=== PATIENT | female | born 1990 | race Caucasian/White ===

== ENCOUNTER 2020-03-13 14:14 | Outpatient (CLI) | payer MEDICAID ==
[2020-03-13 14:50] LABS: BASOPHILS % (AUTO) 0.1 %; EOSINOPHILS % (AUTO) 0.6 %; HGB - HEMOGLOBIN 15.6 g/dL (12.0-16.0); LYMPHOCYTES # (AUTO) 1.7 10^3/uL (1.5-3.5); LYMPHOCYTES % (AUTO) 23.6 %; MEAN CORPUSCULAR HEMOGLOBIN 30.2 pg (27.0-31.0); MEAN CORPUSCULAR HGB CONC 34.3 g/dL (32.0-36.0); MEAN PLATELET VOLUME 10.4 fL (7.9-10.8); MONOCYTES # (AUTO) 0.4 10^3/uL (0.0-1.0); MONOCYTES % (AUTO) 5.3 %; NEUTROPHILS # (AUTO) 4.9 10^3/uL (1.5-6.6); PLT - PLATELET COUNT 267 10^3/uL (130-450); RED BLOOD COUNT 5.17 10^6/uL (4.20-5.40); RED CELL DISTRIBUTION WIDTH 12.1 % (12.0-15.0)
[2020-03-13 14:52] LABS: BILIRUBIN,URINE NEGATIVE (NEGATIVE); GLUCOSE, URINE (UA) NEGATIVE (NEGATIVE); KETONES,URINE (UA) NEGATIVE (NEGATIVE); LEUKOCYTE ESTERASE, URINE NEGATIVE (NEGATIVE); NITRITE,URINE NEGATIVE (NEGATIVE); OCCULT BLOOD,URINE NEGATIVE (NEGATIVE); PROTEIN,URINE NEGATIVE (NEGATIVE); UROBILINOGEN,URINE 0.2 (NORMAL) E.U./dL (NORMAL)
[2020-03-13 14:54] LABS: CLARITY,URINE CLEAR (CLEAR)
[2020-03-13 15:19] LABS: ALBUMIN 4.8 g/dL (3.2-5.5); ALBUMIN/GLOBULIN RATIO 1.3 (1.0-2.2); ALKALINE PHOSPHATASE 90 IU/L (42-121); ALT ALANINE AMINOTRANSFERASE 18 IU/L (10-60); AST ASPARTATE AMINOTRANSFERASE 18 IU/L (10-42); BILIRUBIN,TOTAL 0.5 mg/dL (0.2-1.0); BUN - BLOOD UREA NITROGEN 15 mg/dL (6-20); CALCIUM 9.4 mg/dL (8.5-10.3); CARBON DIOXIDE - CO2 25 mmol/L (21-32); CHLORIDE 101 mmol/L (101-111); CREATININE 0.7 mg/dL (0.4-1.0); GLUCOSE 101 mg/dL (70-100); SODIUM 137 mmol/L (135-145); TOTAL PROTEIN 8.4 g/dL (6.7-8.2)
[2020-03-13 15:30] LABS: CRP - C-REACTIVE PROTEIN < 1.0 mg/dL (0-1.0)
[2020-03-13 16:43] LABS: RHEUMATOID FACTOR NEGATIVE (Negative)
[2020-03-17 11:56] LABS: ANA SCREEN NEGATIVE (NEGATIVE)
== END 2020-03-13 14:15 | disposition home or self-care (01) ==
LOC: LAB 14:14
PROVIDERS: ATTEND Internal Medicine
DX: M25.50 Pain in unspecified joint (principal); M79.10 Myalgia, unspecified site; R53.83 Other fatigue; H57.10 Ocular pain, unspecified eye; H92.09 Otalgia, unspecified ear; R51 Headache; R50.9 Fever, unspecified
CPT/HCPCS: 36415; 80053; 81001; 81003; 84443; 85025; 85651; 86038; 86140; 86200; 86308; 86430; 87040; 87086

== ENCOUNTER 2020-04-11 13:01 | Outpatient (CLI) | payer MEDICAID ==
--- NOTE | 2020-04-11 15:36 | CT Report ---
PROCEDURE: Sinuses INDICATIONS: SINUS PAIN, FEVER TECHNIQUE: Noncontrast 3.0 mm axial images acquired from the frontal sinuses to the mid-sella, with coronal and sagittal reformats. For radiation dose reduction, the following was used: automated exposure control , adjustment of mA and/or kV according to patient size. COMPARISON: None. FINDINGS: Image quality: Excellent. Maxillary Sinuses: No bony remodeling or destruction. Sinuses are clear. Ethmoid Air Cells: No bony remodeling or destruction. Sinuses are clear. Sphenoid Sinuses: No bony remodeling or destruction. Sinuses are clear. Frontal Sinuses: No bony remodeling or destruction. Sinuses are clear. Ostiomeatal Complexes: Ostiomeatal complexes are patent. No Stalin cells. Miscellaneous: Visualized intra-orbital contents are normal. No maximino bullosa. No nasal septal de viation. Unerupted tooth behind the right-sided maxillary incisors. IMPRESSION: No significant paranasal sinus disease. Unerupted tooth behind the right-sided maxillary incisors. Reviewed by: Ricky Britton on 04/11/2020 2:35 PM SUNG Approved by: Ricky Britton on 04/11/2020 2:35 PM SUNG Station ID: [id number]
== END 2020-04-11 13:02 | disposition home or self-care (01) ==
LOC: DI 13:01
PROVIDERS: ATTEND Internal Medicine
DX: J34.89 Other specified disorders of nose and nasal sinuses (principal); R50.9 Fever, unspecified; K00.6 Disturbances in tooth eruption
CPT/HCPCS: 70486

== ENCOUNTER 2020-04-29 13:50 | Outpatient (CLI) | payer MEDICAID ==
[2020-04-29] MEDS ORDERED: IOVERSOL 320 50 ML VIAL ONE (14:03)
[2020-04-29] MEDS ORDERED: IOVERSOL 320 100 ML VIAL IVP ONE ×2 (14:03→19:03)
--- NOTE | 2020-04-29 17:12 | CT Report ---
PROCEDURE: CHEST W INDICATIONS: FEVER CONTRAST: IV CONTRAST: Optiray 320 ml: 100 PO CONTRAST: *NO PO CONTRAST TECHNIQUE: After the administration of intravenous contrast, 5 mm thick sections acquired from the pulmonary api ovi to the posterior costophrenic angles. 7 mm thick coronal MIP reformats were acquired. For radia tion dose reduction, the following was used: automated exposure control, adjustment of mA and/or kV according to patient size. COMPARISON: Same day CT abdomen and pelvis. FINDINGS: Image quality: Excellent. Lungs and pleura: No acute air space opacities. No pleural effusions or pneumothorax. Central and peripheral airways are patent and normal in caliber. Mediastinum: Heart size is normal. No pericardial effusion. No mediastinal or hilar adenopathy by size criteria. Thoracic aorta and central pulmonary arteries are normal in size. Esophagus is caroline l in caliber. No hiatal hernia. Bones and chest wall: No suspicious bony lesions. No vertebral body compression fractures. No axil hellen or supraclavicular adenopathy by size criteria. Small bilateral subcentimeter thyroid nodules. Abdomen: Visualized upper abdominal solid organs appear normal. Upper abdominal bowel loops are nor mal in caliber. IMPRESSION: No acute airspace opacity. No pleural effusion. Subcentimeter thyroid nodules bilaterally. Reviewed by: Wesley Campoverde MD on 04/29/2020 5:11 PM PDT Approved by: Wesley Campoverde MD on 04/29/2020 5:11 PM PDT Station ID: [id number]
--- NOTE | 2020-04-29 17:18 | CT Report ---
PROCEDURE: Abdomen/Pelvis W INDICATIONS: FEVER CONTRAST: IV CONTRAST: Optiray 320 ml: 100 PO CONTRAST: Optiray 320 ml50 TECHNIQUE: After the administration of oral and intravenous contrast, 5 mm thick sections acquired from the diap hragms to the symphysis. 5 mm thick coronal and sagittal reformats were acquired. For radiation dos e reduction, the following was used: automated exposure control, adjustment of mA and/or kV accordin g to patient size. COMPARISON: Same day CT chest. FINDINGS: Image quality: Excellent. ABDOMEN: Lung bases: Lung bases are clear. Heart size is normal. Solid organs: Liver and spleen are normal in size and enhancement. Gallbladder is unremarkable. No pericholecystic fluid. Biliary system is non dilated. Pancreas enhances normally. No adrenal nodul es. Kidneys demonstrate normal size and enhancement, without hydronephrosis. Small simple cyst in th e inferior right kidney. No striated nephrogram. Peritoneum and bowel: Bowel loops demonstrate normal wall thickness and caliber. Prominent stool the colon. Normal appendix. No periappendiceal fluid. No free fluid or air. Nodes and vessels: No retroperitoneal or mesenteric adenopathy by size criteria. Aorta and inferior vena cava are normal in size. Miscellaneous: Tiny fat-containing periumbilical hernia. PELVIS: Genitourinary: Bladder wall thickness is normal. Anteverted uterus. No free fluid in the pelvis. Miscellaneous: No inguinal hernias or adenopathy. Bones: No suspicious bony lesions. No vertebral body compression fractures. IMPRESSION: 1. No acute inflammatory abnormality identified. No free fluid. 2. Prominent stool the colon. This could be seen in constipation. Reviewed by: Wesley Campoverde MD on 04/29/2020 5:16 PM PDT Approved by: Wesley Campoverde MD on 04/29/2020 5:16 PM PDT Station ID: [id number]
[2020-04-29] MEDS ORDERED: IOVERSOL 320 50 ML VIAL PO ONE (19:05)
== END 2020-04-29 13:51 | disposition home or self-care (01) ==
LOC: DI 13:50
PROVIDERS: ATTEND Internal Medicine
DX: R50.9 Fever, unspecified (principal); E04.2 Nontoxic multinodular goiter
CPT/HCPCS: 71260; 74177; Q9967

== ENCOUNTER 2023-06-13 18:38 | Emergency (ER) | payer OTHER ==
[2023-06-13 19:07] VITALS: O2SAT 100
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
[2023-06-13 20:19] VITALS: BP 134/85
== END 2023-06-13 20:12 | disposition home or self-care (01) ==
LOC: ED 18:38
DX: S16.1XXA Strain of muscle, fascia and tendon at neck level, initial encounter (principal); V43.52XA Car driver injured in collision with other type car in traffic accident, initial encounter; Y92.410 Unspecified street and highway as the place of occurrence of the external cause
CPT/HCPCS: 99281; 99283